=== PATIENT | female | born 1950 | race African-American/Black ===

== ENCOUNTER 2017-01-31 14:46 | Emergency (ER) | payer MEDICARE, BC ==
[~2017-01-31] VITALS: Ht 167.6 cm; Wt 86.0 kg
[2017-01-31] MEDS ORDERED: CYAN10009 PO (15:11)
[2017-01-31] MEDS ORDERED: IBUP-1510 PO (15:11)
[2017-01-31] MEDS ORDERED: INSU3INS6 SQ (15:11)
[2017-01-31] MEDS ORDERED: BENA1TAB18 PO (15:11)
[2017-01-31] MEDS ORDERED: INSU200I SQ (15:11)
[2017-01-31] MEDS ORDERED: SIMV40TA5 PO (15:11)
[2017-01-31 18:08] LABS: BASOPHILS % 0.8 % (0.0-2.0); EOSINOPHILS % 0.1 % (0.0-5.0); HEMATOCRIT. 38.6 % (36.0-48.0); HEMOGLOBIN. 12.4 g/dL (12.0-16.0); LYMPHOCYTES % 12.7 % (20.0-50.0); MEAN CORPUSCULAR HEMOGLOBIN 24.5 pg (28.0-32.0); MEAN CORPUSCULAR VOLUME 76.4 fL (81.0-99.0); MEAN PLATELET VOLUME 9.4 fl (7.4-10.4); MONOCYTES % 2.6 % (2.0-8.0); NEUTROPHILS % 83.8 % (40.0-76.0); PLATELET 249 x1000/uL (130-400); RED BLOOD CELL COUNT 5.05 mill/uL (4.2-5.4); RED CELL DISTRIBUTION WIDTH 15.9 % (11.6-14.6)
[2017-01-31 18:12] LABS: CHLORIDE 102 mEq/L (98-107); PROTHROMBIN TIME 10.5 sec (9.4-11.6)
[2017-01-31 18:21] LABS: CARBON DIOXIDE 25 mEq/L (21-32)
[2017-01-31 18:58] LABS: CLARITY URINE CLEAR (CLEAR); COLOR URINE YELLOW (YELLOW); GLUCOSE URINE 3+ (NEGATIVE); KETONES URINE 1+ (NEGATIVE); LEUKOCYTE ESTERASE URINE NEGATIVE (NEGATIVE); NITRITE URINE NEGATIVE (NEGATIVE); OCCULT BLOOD URINE TRACE (NEGATIVE); PROTEIN URINE NEGATIVE (NEGATIVE); SPECIFIC GRAVITY URINE 1.019 (1.005-1.030)
[2017-01-31 19:30] VITALS: BP 162/70
== END 2017-01-31 20:35 | disposition left against medical advice (07) ==
LOC: ER 18:12
DX: E78.5 Hyperlipidemia, unspecified (principal); I10 Essential (primary) hypertension; E11.9 Type 2 diabetes mellitus without complications; M25.511 Pain in right shoulder; R11.0 Nausea; R10.9 Unspecified abdominal pain; Z79.4 Long term (current) use of insulin; Z88.0 Allergy status to penicillin
CPT/HCPCS: 36415; 80053; 81001; 82962; 83690; 85025; 85610; 99284